=== PATIENT | female | born 1980 | race Caucasian/White ===

== ENCOUNTER 2019-05-15 23:20 | Outpatient (REF) | payer BC, SELFPAY ==
[2019-05-15 21:39] LABS: TSH 1.82 uIU/mL (0.36-3.74)
== END 2019-05-15 23:40 ==
LOC: NCHCN 23:20
PROVIDERS: PCP Nurse Practitioner Family; Visit Provider Nurse Practitioner Family
DX: E03.9 Hypothyroidism, unspecified (principal); F41.9 Anxiety disorder, unspecified; M79.646 Pain in unspecified finger(s)
CPT/HCPCS: 84443

== ENCOUNTER 2020-07-05 18:53 | Outpatient (REF) | payer BC, SELFPAY ==
[2020-07-05 21:34] LABS: Hemoglobin A1C 5.4 % (<5.7)
[2020-07-05 21:38] LABS: Anion Gap 6.7 mmol/L (3-11); BUN 10 mg/dL (7-18); CO2 25.3 mmol/L (21.0-32.0); Calcium 8.7 mg/dL (8.5-10.1); Calculated LDL 103 mg/dL (<100); Chloride 104 mmol/L (98-107); Cholesterol 210 mg/dL (<200); Glucose 86 mg/dL (74-106); HDL Cholesterol 61 mg/dL (40-60); Potassium 4.1 mmol/L (3.5-5.1); Sodium 136 mmol/L (136-145); Triglyceride 230 mg/dL (<150)
== END 2020-07-05 19:13 ==
LOC: NCHCN 18:53
PROVIDERS: PCP Nurse Practitioner Family; Visit Provider Nurse Practitioner Family
DX: E03.9 Hypothyroidism, unspecified (principal); E66.9 Obesity, unspecified; F41.9 Anxiety disorder, unspecified; F32.9 Major depressive disorder, single episode, unspecified; R05 Cough; R03.0 Elevated blood-pressure reading, without diagnosis of hypertension; Z13.220 Encounter for screening for lipoid disorders; Z13.1 Encounter for screening for diabetes mellitus
CPT/HCPCS: 80048; 80061; 83036; 84443

== ENCOUNTER 2021-02-24 09:53 | Outpatient (REF) | payer BC, SELFPAY ==
[2021-02-24 13:25] LABS: HGB 14.9 g/dL (11.2-15.7); MCHC 33.1 % (32.0-36.0); MCV 96.8 fL (80-95); MPV 11.9 fL (8.0-11.0); Platelet Count 185 10^3/uL (130-400); RBC 4.65 10^6/uL (3.93-5.22); RDW 12.9 % (11.7-14.6); WBC 6.12 10^3/uL (4.4-10.8)
[2021-02-24 13:47] LABS: Ferritin 73 ng/mL (8-252); TSH 2.36 uIU/mL (0.36-3.74)
== END 2021-02-24 09:54 | disposition home or self-care (01) ==
LOC: NCHCN 09:53
PROVIDERS: PCP Nurse Practitioner Family; Visit Provider Nurse Practitioner Family
DX: F32.9 Major depressive disorder, single episode, unspecified (principal); E03.9 Hypothyroidism, unspecified; R05 Cough; R53.83 Other fatigue; E66.9 Obesity, unspecified
CPT/HCPCS: 85027; 82728; 84443

== ENCOUNTER 2021-12-06 15:26 | Outpatient (REF) | payer BC, SELFPAY ==
[2021-12-06 17:19] LABS: TSH 2.54 uIU/mL (0.36-3.74)
== END 2021-12-06 15:27 | disposition home or self-care (01) ==
LOC: NCHCN 15:26
PROVIDERS: PCP Nurse Practitioner Family; Visit Provider Nurse Practitioner Family
DX: E03.9 Hypothyroidism, unspecified (principal)
CPT/HCPCS: 84443

== ENCOUNTER 2023-02-15 11:12 | Outpatient (REF) | payer BC, SELFPAY ==
[2023-02-15 15:14] LABS: HGB 14.7 g/dL (11.2-15.7); MCH 31.3 pg (27.0-33.0); MCHC 32.7 % (32.0-36.0); MCV 96 fL (80-95); MPV 12.6 fL (8.0-11.0); Platelet Count 194 10^3/uL (130-400); RDW 13.2 % (11.7-14.6); RDW-SD 46.5 fL; WBC 6.22 10^3/uL (4.4-10.8)
[2023-02-15 15:52] LABS: Hemoglobin A1C 5.4 % (<5.7)
[2023-02-15 16:13] LABS: ALT 23 U/L (14-59); AST 23 U/L (15-37); Albumin 3.6 g/dL (3.4-5.0); Alkaline Phosphatase 93 U/L (46-116); Anion Gap 7.7 mmol/L (3-11); BUN 11 mg/dL (7-18); Bilirubin, Total 0.6 mg/dL (0.2-1.0); CO2 25.3 mmol/L (21.0-32.0); CREATININE 0.7 mg/dL (0.55-1.02); Calcium 8.9 mg/dL (8.5-10.1); Chloride 104 mmol/L (98-107); Estimated GFR 108.62 (mL/min/1.73m2); Glucose 94 mg/dL (74-106); Potassium 4.3 mmol/L (3.5-5.1); Sodium 137 mmol/L (136-145); TSH 3.42 uIU/mL (0.36-3.74); Total Protein 7.3 g/dL (6.4-8.2)
[2023-02-19 11:28] LABS: Hepatitis C Ab w Rflx HCV PCR Negative (Negative)
== END 2023-02-15 11:13 | disposition home or self-care (01) ==
LOC: NCHCN 11:12
PROVIDERS: PCP Nurse Practitioner Family; Visit Provider Nurse Practitioner Family
DX: Z00.00 Encounter for general adult medical examination without abnormal findings (principal); E03.9 Hypothyroidism, unspecified; R03.0 Elevated blood-pressure reading, without diagnosis of hypertension; Z13.1 Encounter for screening for diabetes mellitus; Z11.59 Encounter for screening for other viral diseases
CPT/HCPCS: 80053; 85027; 86803; 83036; 84443

== ENCOUNTER 2023-06-11 16:56 | Outpatient (REF) | payer BC, SELFPAY ==
[2023-06-11 17:52] LABS: Anion Gap 8.1 mmol/L (3-11); BUN 13 mg/dL (7-18); CO2 28.9 mmol/L (21.0-32.0); CREATININE 0.7 mg/dL (0.55-1.02); Calcium 9.6 mg/dL (8.5-10.1); Chloride 99 mmol/L (98-107); Estimated GFR 108.62 (mL/min/1.73m2); Glucose 94 mg/dL (74-106); Potassium 3.5 mmol/L (3.5-5.1); Sodium 136 mmol/L (136-145)
== END 2023-06-11 16:57 | disposition home or self-care (01) ==
LOC: NCHCN 16:56
PROVIDERS: PCP Nurse Practitioner Family; Visit Provider Nurse Practitioner Family
DX: I10 Essential (primary) hypertension (principal)
CPT/HCPCS: 80048

== ENCOUNTER 2023-07-18 10:03 | Outpatient (REF) | payer BC, SELFPAY ==
[2023-07-18 15:43] LABS: Anion Gap 8.1 mmol/L (3-11); BUN 14 mg/dL (7-18); CO2 28.9 mmol/L (21.0-32.0); CREATININE 0.7 mg/dL (0.55-1.02); Calcium 9.4 mg/dL (8.5-10.1); Chloride 101 mmol/L (98-107); Estimated GFR 108.62 (mL/min/1.73m2); Glucose 90 mg/dL (74-106); Sodium 138 mmol/L (136-145)
== END 2023-07-18 10:04 | disposition home or self-care (01) ==
LOC: NCHCN 10:03
PROVIDERS: PCP Nurse Practitioner Family; Visit Provider Nurse Practitioner Family
DX: I10 Essential (primary) hypertension (principal)
CPT/HCPCS: 80048

== ENCOUNTER 2024-05-08 18:43 | Outpatient (REF) | payer BC, SELFPAY ==
[2024-05-08 21:45] LABS: HCT 43.4 % (36.0-46.0); HGB 14.4 g/dL (11.2-15.7); MCH 32.3 pg (27.0-33.0); MCHC 33.2 % (32.0-36.0); MCV 97 fL (80-95); MPV 12.2 fL (8.0-11.0); Platelet Count 205 10^3/uL (130-400); RBC 4.46 10^6/uL (3.93-5.22); RDW-SD 46.5 fL
[2024-05-08 22:10] LABS: Hemoglobin A1C 5.5 % (<5.7)
[2024-05-08 22:21] LABS: ALT 27 U/L (14-59); AST 29 U/L (15-37); Albumin 3.4 g/dL (3.4-5.0); Alkaline Phosphatase 76 U/L (46-116); Anion Gap 6.4 mmol/L (3-11); BUN 9 mg/dL (7-18); Bilirubin, Total 0.47 mg/dL (0.2-1.0); CO2 28.6 mmol/L (21.0-32.0); CREATININE 0.7 mg/dL (0.55-1.02); Calcium 8.9 mg/dL (8.5-10.1); Chloride 105 mmol/L (98-107); Estimated GFR 107.95 (mL/min/1.73m2); Glucose 117 mg/dL (74-106); Potassium 3.6 mmol/L (3.5-5.1); Sodium 140 mmol/L (136-145); TSH 2.15 uIU/Ml (0.36-3.74)
== END 2024-05-08 18:44 | disposition home or self-care (01) ==
LOC: NCHCN 18:43
PROVIDERS: PCP Nurse Practitioner Family; Visit Provider Nurse Practitioner Family
DX: I10 Essential (primary) hypertension (principal); E03.9 Hypothyroidism, unspecified; Z13.1 Encounter for screening for diabetes mellitus
CPT/HCPCS: 80053; 85027; 83036; 84443

== ENCOUNTER 2025-06-01 15:53 | Outpatient (REF) | payer BC, SELFPAY ==
[2025-06-01 15:17] LABS: HCT 44.5 % (36.0-46.0); HGB 15.0 g/dL (11.2-15.7); MCH 32.1 pg (27.0-33.0); MCHC 33.7 % (32.0-36.0); MCV 95 fL (80-95); MPV 12.0 fL (8.0-11.0); Platelet Count 225 10^3/uL (130-400); RBC 4.67 10^6/uL (3.93-5.22); RDW 13.2 % (11.7-14.6); RDW-SD 46.1 fL; WBC 5.95 10^3/uL (4.4-10.8)
[2025-06-01 16:03] LABS: ALT 29 U/L (14-59); AST 22 U/L (15-37); Albumin 3.6 g/dL (3.4-5.0); Alkaline Phosphatase 71 U/L (46-116); Anion Gap 7.5 mmol/L (3-11); BUN 10 mg/dL (7-18); Bilirubin, Total 0.5 mg/dL (0.2-1.0); CO2 25.5 mmol/L (21.0-32.0); Calcium 9.1 mg/dL (8.5-10.1); Chloride 105 mmol/L (98-107); Estimated GFR 91.40 (mL/min/1.73m2); Glucose 103 mg/dL (74-106); Potassium 3.8 mmol/L (3.5-5.1); Sodium 138 mmol/L (136-145); TSH 2.43 uIU/mL (0.36-3.74); Total Protein 7.4 g/dL (6.4-8.2)
[2025-06-01 17:06] LABS: Hemoglobin A1C 5.0 % (<5.7)
[2025-06-02 16:05] LABS: Calculated LDL 107 mg/dL (<100); Cholesterol 190 mg/dL (<200); HDL Cholesterol 58 mg/dL (>or=50); Triglyceride 129 mg/dL (<150)
== END 2025-06-01 15:54 | disposition home or self-care (01) ==
LOC: NCHCN 15:53
PROVIDERS: PCP Nurse Practitioner Family; Visit Provider Nurse Practitioner Family
DX: I10 Essential (primary) hypertension (principal); E03.9 Hypothyroidism, unspecified; Z13.220 Encounter for screening for lipoid disorders; Z13.1 Encounter for screening for diabetes mellitus
CPT/HCPCS: 80053; 80061; 85027; 83036; 84443